=== PATIENT | female | born 1995 | race Caucasian/White ===

== ENCOUNTER 2023-02-20 12:15 | Emergency (ER) | payer OTHER ==
[2023-02-20 12:34] VITALS: BP 136/84; PULSE 90; RESP 18; TEMP 98.2; BMI 45.6
[2023-02-20] MEDS ORDERED: ACETAMINOPHEN 325 MG TABLET (FP) PO ONE (12:52)
[2023-02-20] MEDS ORDERED: ACETAMINOPHEN 325 MG TABLET (FP) ONE (13:06)
== END 2023-02-20 13:10 | disposition home or self-care (01) ==
LOC: FER 12:15
DX: R07.0 Pain in throat (principal); R68.83 Chills (without fever); J02.8 Acute pharyngitis due to other specified organisms
CPT/HCPCS: 99283-25